=== PATIENT | female | born 1985 | race Caucasian/White ===

== ENCOUNTER 2021-03-03 10:55 | Emergency (ER) | payer BC, SELFPAY ==
[2021-03-03 11:04] VITALS: BP 116/75; PULSE 98; RESP 20; TEMP 37; O2SAT 98
--- NOTE | 2021-03-03 11:08 | ED.URI ---
HPI - URI/Sore Throat General Chief Complaint: Upper Respiratory Infection Stated Complaint: sore throat and headache with pressure Time Seen by Provider: 03/03/21 11:08 Source: patient Mode of arrival: ambulatory Limitations: no limitations History of Present Illness HPI Narrative: Meg is a 36 year old female patient who ambulated into [facility] with c/o cough, sore throat and nasal congestion for the last 3 days. Patient states she has not taken any [id number] medications. Patient is currently afebrile. Patient states she had a temp of 100.6 at home previously. MD elicited complaint: cough Related Data Home Medications Medication Instructions Recorded Confirmed lisinopril 20 mg PO DAILY 03/03/21 03/03/21 Allergies Allergy/AdvReac Type Severity Reaction Status Date / Time No Known Allergies Allergy Verified 03/03/21 11:16 Review of Systems Review of Systems: CONSTITUTIONAL: Denies body aches, fever, chills, or sweats. EYES: Denies visual changes, redness, or discharge. ENT: Denies rhinorrhea,+ congestion, + sore throat, denies otalgia. CARDIOVASCULAR: Denies chest pain, palpitations, or edema. RESPIRATORY: Denies cough or dyspnea. GASTROINTESTINAL: Denies abdominal pain, nausea, vomiting, or diarrhea. GENITOURINARY: Denies dysuria or hematuria. SKIN: Denies rash, itching, or wounds. MUSCULOSKELETAL: Denies back pain, joint pain, or myalgia. NEUROLOGIC: Denies headache, numbness, tingling, or weakness. PSYCH: Denies depression or anxiety. All systems reviewed & are unremarkable except as noted in HPI and below PMFSH Comments At time of signature, I have reviewed and agree with nursing past medical, surgical, social and family history unless otherwise noted. Please see nursing chart for further information. There is no relevant family history pertinent to the presenting complaint Exam Narrative: GENERAL: Well-appearing, well-nourished, and in no acute distress. HEAD: Normocephalic, atraumatic. EYES: EOMI. No redness or drainage. Conjunctivae normal. ENT: Mucous membranes pink and moist. Nasal membranes erythematous with clear rhinorrhea. Bilateral tympanic membranes are dull with minimal fluid. Posterior pharynx is mildly erythemic with moderate edema. Minimal amount of clear postnasal drainage is noted. . Uvula midline. NECK: Normal AROM. Supple. No lymphadenopathy. CHEST: No respiratory distress. Clear to auscultation. MUSCULOSKELETAL: No bony tenderness. EXTREMITIES: Normal range of motion. No edema. SKIN: Warm, dry, no rash. Capillary refill normal. Normal skin turgor. NEURO: No focal deficits. Alert and oriented x3. Gait steady. PSYCH: Normal affect. No signs of depression or anxiety. Course Vital Signs Vital signs: Vital Signs Temperature 37.0 C 03/03/21 11:04 Pulse Rate 98 03/03/21 11:04 Respiratory Rate 20 03/03/21 11:04 Blood Pressure 116/75 03/03/21 11:04 Pulse Oximetry 98 03/03/21 11:04 Temperature 37.0 C 03/03/21 11:21 Pulse Rate 98 03/03/21 11:21 Respiratory Rate 20 03/03/21 11:21 Blood Pressure 116/75 03/03/21 11:21 Pulse Oximetry 98 03/03/21 11:21 Reviewed MDM - URI/Sore Throat MDM Narrative Medical decision making narrative: Rapid strep is negative. Throat culture will be sent to lab Influenza a/B are both negative Rapid COVID-19 is negative. Differential Diagnosis Differential diagnosis: Likely upper respiratory infection, sinusitis, influenza and pharyngitis Medical Records Attestation: I reviewed the patient's medical records. Lab Data Attestation: I reviewed the patient's lab results. Labs: Influenza A Screen Negative Reference Range: Negative Influenza B Screen Negative Reference Range: Negative Strep Screen Presumptive Negative *(Refere
[2021-03-03 11:21] VITALS: BP 116/75; PULSE 98; RESP 20; TEMP 37; O2SAT 98
== END 2021-03-03 11:40 | disposition home or self-care (01) ==
PROVIDERS: Emergency Provider Nurse Practitioner Family
DX: J06.9 Acute upper respiratory infection, unspecified (principal); Z20.822 Contact with and (suspected) exposure to COVID-19; I10 Essential (primary) hypertension; E78.00 Pure hypercholesterolemia, unspecified
CPT/HCPCS: 87081; 87426; 87804; 87880; 99213; C9803; G0463

== ENCOUNTER 2022-04-15 15:13 | Emergency (ER) | payer BC, SELFPAY ==
[2022-04-15 15:18] VITALS: BP 136/87; PULSE 95; RESP 20; TEMP 37.2; O2SAT 100
--- NOTE | 2022-04-15 15:19 | ED.EYEPROB ---
HPI - Eye Problem General Chief complaint: Eye Problems Stated complaint: Right eye Time Seen by Provider: 04/15/22 15:19 History of Present Illness HPI Narrative: patient was working in the basement with dust and thinks she may have gotten something inher right eye. eye reddened and water no vision problems. Related Data Home Medications Medication Instructions Recorded Confirmed lisinopril 20 mg tablet 20 mg PO DAILY 03/03/21 04/15/22 hydrochlorothiazide 12.5 mg tablet mg 04/15/22 olmesartan 20 mg tablet mg 04/15/22 rizatriptan 10 mg tablet mg 04/15/22 rosuvastatin 20 mg tablet mg 04/15/22 semaglutide 3 mg tablet (Rybelsus) 3 mg PO DAILY 04/15/22 04/15/22 Allergies Allergy/AdvReac Type Severity Reaction Status Date / Time No Known Allergies Allergy Verified 04/15/22 15:19 Review of Systems Review of Systems: CONSTITUTIONAL: Denies fever, chills, or sweats. EYES: Denies visual changes, redness, or discharge. ENT: Denies rhinorrhea, congestion, sore throat, or otalgia. CARDIOVASCULAR: Denies chest pain, palpitations, or edema. RESPIRATORY: Denies cough or dyspnea. GASTROINTESTINAL: Denies abdominal pain, nausea, vomiting, or diarrhea. GENITOURINARY: Denies dysuria or hematuria. SKIN: Denies rash or itching. MUSCULOSKELETAL: Denies back pain, joint pain, or myalgia. NEUROLOGIC: Denies headache, numbness, or weakness. PSYCHIATRIC: Denies anxiety or depression. PMFSH Comments At time of signature, agree with nursing past medical, surgical, social and family history. There is no relevant family history pertinent to the presenting complaint Exam Narrative: GENERAL: Well-appearing, well-nourished, and in no acute distress. HEAD: Normocephalic, atraumatic. EYES: PERRLA and EOMI. ENT: Nares clear, no rhinorrhea or epistaxis. Mucous membranes moist. corneal abrasion 3 oclock right eye NECK: Supple. CHEST: Clear to auscultation. No respiratory distress. HEART: Regular rate and rhythm. No murmur heard. Normal peripheral pulses. ABDOMEN: Soft, nontender, nondistended, normal active bowel sounds. EXTREMITIES: Normal range of motion. No edema. SKIN: Warm, dry, no rash. NEURO: No focal deficits. Alert and oriented x3. [place] Coma Scale Eye Opening: Spontaneous 4 [place] Coma Scale Motor: Obeys Commands 6 Víctor Coma Scale Verbal: Oriented 5 Víctor Coma Scale Total 15 Course Course Level of Care: Express Care Visit Vital Signs Vital signs: Vital Signs Temperature 37.2 C 04/15/22 15:18 Pulse Rate 95 04/15/22 15:18 Respiratory Rate 20 04/15/22 15:18 Blood Pressure 136/87 04/15/22 15:18 Pulse Oximetry 100 04/15/22 15:18 Oxygen Delivery Room Air 04/15/22 15:18 Temperature 37.2 C 04/15/22 15:18 Pulse Rate 95 04/15/22 15:18 Respiratory Rate 20 04/15/22 15:18 Blood Pressure 136/87 04/15/22 15:18 Pulse Oximetry 100 04/15/22 15:18 Oxygen Delivery Room Air 04/15/22 15:18 follow up with family eye doctor in 1--2 days Procedures FB Removal Eye Foreign Body #1: Time Out performed: Yes Topical anesthetic used: tetracaine Patient tolerated procedure: well Complications: other (corneal abrasion) Foreign Body Removal Narrative: eye drops of tetracain applied and eye stained and examined under sterling lamp cornea abrasion to eight eye 3 oclock Discharge Plan Discharge Clinical Impression: Corneal abrasion Patient Disposition: Home, Self-Care Condition: Stable Instructions: Antibiotic Form, Corneal Abrasion (DC) Additional Instructions: Use eyedrops as prescribed until gone Follow-up with Family Eye doctor in 1-2 days for re-evaluation Tylenol and ibuprofen as needed for pain or discomfort If any new or worsening symptoms please go the ER immediately for further evaluation treatment Prescriptions: New ciprofloxacin HCl 0.3 % drops 2 drop RIGHT EYE Q4H PRN (Reason: abrasion) 5 Days Qty: 5 0RF Rx Instructions
== END 2022-04-15 15:35 | disposition home or self-care (01) ==
PROVIDERS: Emergency Provider Nurse Practitioner Family; PCP Internal Medicine Geriatric Medicine
DX: S05.01XA Injury of conjunctiva and corneal abrasion without foreign body, right eye, initial encounter (principal); X58.XXXA Exposure to other specified factors, initial encounter; E78.00 Pure hypercholesterolemia, unspecified; I10 Essential (primary) hypertension
CPT/HCPCS: 99213; A9270; G0463

== ENCOUNTER 2022-10-29 08:26 | Emergency (ER) | payer BC, SELFPAY ==
[2022-10-29 08:30] VITALS: BP 116/71; PULSE 101; RESP 20; TEMP 37.2; O2SAT 100
--- NOTE | 2022-10-29 08:58 | ED.GENADULT ---
HPI - General Adult General Chief complaint: Upper Respiratory Infection Stated complaint: sore throat Source: patient Mode of arrival: ambulatory Limitations: no limitations History of Present Illness HPI narrative: Patient presents for evaluation of sick symptoms since yesterday. Symptoms include itching of the ears, mild sore throat, postnasal drainage. No fever, chills, nausea, vomiting, cough, shortness of breath. No recent sick contacts to her knowledge. She took a home COVID test which was negative. She does not smoke. No additional complaints or concerns. Related Data Home Medications Medication Instructions Recorded Confirmed lisinopril 20 mg tablet 20 mg PO DAILY 03/03/21 10/29/22 hydrochlorothiazide 12.5 mg tablet 12.5 mg PO DAILY 04/15/22 10/29/22 olmesartan 20 mg tablet 20 mg PO DAILY 04/15/22 10/29/22 rizatriptan 10 mg tablet 10 mg PO DAILY 04/15/22 10/29/22 rosuvastatin 20 mg tablet 20 mg PO DAILY 04/15/22 10/29/22 semaglutide 3 mg tablet (Rybelsus) 3 mg PO DAILY 04/15/22 10/29/22 Allergies Allergy/AdvReac Type Severity Reaction Status Date / Time No Known Allergies Allergy Verified 04/15/22 15:19 Review of Systems Review of Systems: CONSTITUTIONAL: Denies fever, chills, or sweats. EYES: Denies visual changes, redness, or discharge. ENT:Reports itching of the ears, sore throat and postnasal drainage. CARDIOVASCULAR: Denies chest pain, palpitations, or edema. RESPIRATORY: Denies cough or dyspnea. GASTROINTESTINAL: Denies abdominal pain, nausea, vomiting, or diarrhea. GENITOURINARY: Denies dysuria or hematuria. SKIN: Denies rash or itching. MUSCULOSKELETAL: Denies back pain, joint pain, or myalgia. NEUROLOGIC: Denies headache, numbness, dizziness, or weakness. PSYCHIATRIC: Denies anxiety or depression. [facility] Past Medical History Medical History Hyperlipidemia Hypertension Surgical History Surgical History No pertinent past surgical history Family History Family History Mother Family history non-contributory Social History Social History Smoking status: Never smoker Substance use: never Living arrangements: with family Gender identity (if verbalized by the patient): Female Sexual Orientation (if Verbalized by the Patient): Straight or Heterosexual Spiritual care concerns: No Exam Narrative: GENERAL: Well-appearing, well-nourished, and in no acute distress. HEAD: Normocephalic, atraumatic. EYES: PERRLA and EOMI. ENT: Nares clear, no rhinorrhea or epistaxis. Mucous membranes moist. Oropharynx without tonsillar hypertrophy exudate or other lesions. Bilateral TMs pearly leiva nonbulging NECK: Supple. No adenopathy or masses. No carotid bruits or JVD CHEST: Clear to auscultation. No respiratory distress. No wheezes rales or rhonchi HEART: Regular rate and rhythm. No murmur heard. Normal peripheral pulses. ABDOMEN: Soft, nontender, nondistended, normal active bowel sounds. EXTREMITIES: Normal range of motion. No edema. SKIN: Warm, dry, no rash. NEURO: No focal deficits. Alert and oriented x3. PSYCH: Normal mood and affect. Course Course Emergency Course: This is a 37-year-old female who presented for evaluation of sick symptoms. COVID test at home was negative. Strep here negative. Exam is consistent with acute viral syndrome. Phenylephrine and cepacol should help. Increase hydration. [id number] agents for symptom management. Follow up with primary provider. Go to the ER for worsening symptoms. Patient in agreement with plan of care. Level of Care: Express Care Visit Vital Signs Vital signs: Vital Signs Temperature 37.2 C 10/29/22 08:30 Pulse Rate 101 H 10/29/22 08:30 Respiratory Rate 20 10/29/22
== END 2022-10-29 09:05 | disposition home or self-care (01) ==
PROVIDERS: Emergency Provider Nurse Practitioner; PCP Internal Medicine Geriatric Medicine
DX: B34.9 Viral infection, unspecified (principal); E78.5 Hyperlipidemia, unspecified; I10 Essential (primary) hypertension
CPT/HCPCS: 87081; 87880; 99213; G0463